=== PATIENT | female | born 1985 | race Caucasian/White ===

== ENCOUNTER 2018-04-29 19:09 | Outpatient (CLI) | payer OTHER ==
[2018-04-29 19:36] VITALS: BP 126/72
[2018-04-29] MEDS ORDERED: NITRATEST PAPER MC ONE (21:00)
== END 2018-04-29 20:56 | disposition home or self-care (01) ==
LOC: TRG 19:09
PROVIDERS: ATTEND Obstetrics & Gynecology
DX: O62.9 Abnormality of forces of labor, unspecified (principal); Z3A.40 40 weeks gestation of pregnancy
CPT/HCPCS: 59025

== ENCOUNTER 2018-05-01 20:45 | Inpatient (IN) | payer OTHER ==
--- NOTE | 2018-05-01 21:45 | History and Physical Report ---
History of Present Illness Date of examination: 05/01/18 Date of admission: 05/01/18 20:45 Chief complaint: 32 year old presents to L&D for induction of labor. History of present illness: 32 year old presents to L&D for induction of labor. LMP 07/18/17. EDC 04/24/18. EGA 41 weeks. Patient received care at [facility] clinic. Patient reports slightly decreased movement for past 2 days. She denies leaking of fluid or vaginal bleeding. Patient has a history of insulin resistance but had normal gestational diabetes screen. She has a history of elevated triglycerides and took Gemfibrozil prior to finding out she was . Patient had UTI during which was treated with Macrobid, and she had yeast infection which was treated with Terazol vaginal cream. She also has had anemia during . labs are as follows: O+, antibody screen negative, rubella immune, HIV negative, hepatitis B surface antigen negative, RPR nonreactive, chlamydia negative, gonorrhea negative, Quad screen negative, 1 hour sugar test 71, GBS negative. Past History Past Medical History: other (insulin resistance, elevated triglycerides) Past Surgical History: no surgical history [employer] History: abnormal PAP smear. denies: chlamydia, gonorrhea, hepatitis B, herpes, HIV, syphilis Family/Genetic History: none Social history: , lives with family, full code. denies: smoking, alcohol abuse, prescription drug abuse, IV drug use - Obstetrical History Expected Date of Delivery: 04/24/18 Actual Gestation: 41 Week(s) 0 Day(s) : 3 Para: 2 Hx # Term Pregnancies: 2 Number of Pregnancies: 1 Spontaneous Abortions: 0 Induced : 0 Number of Living Children: 2 Medications and Allergies Allergies Allergy/AdvReac Type Severity Reaction Status Date / Time egg Allergy Vomiting Verified 03/29/15 21:39 Home Medications Medication Instructions Recorded Confirmed Last Taken Type Albuterol Sulfate [Ventolin HFA] 2 puff IH Q4H PRN 04/29/18 04/29/18 04/29/18 History n Amoxicillin CAP 500 mg PO BID 04/29/18 04/29/18 04/29/18 10:00 History Review of Systems All systems: negative (one week past her due date) - Physical Exam Cardiovascular: Regular rate, Normal S1, Normal S2 Lungs: Positive: Clear to auscultation Abdomen: Positive: normal appearance, soft. Negative: distention, tenderness, guarding, rigidity Genitourinary (Female): Positive: normal external genitalia, perineal/vulvar lesions (no lesions noted on careful exam with bright light upon admission) Uterus: Positive: enlarged. Negative: tender, absent Adnexa: both: normal Anus/Rectum: Positive: normal perianal skin Extremities: Positive: normal. Negative: tenderness, edema - Obstetrical FHR: category 1 Uterine Contraction Monitor Mode: External Cervical Dilatation: 3 Cervical Effacement Percentage: 80 station: -3 to -4 Uterine Contraction Pattern: Irregular Uterine Contraction Intensity: Mild Results All other labs normal. Assessment and Plan A: at 41 weeks gestation. Group B strep negative. P: Admit. Pitocin induction of labor. Discussed with pt. risks and benefits of Pitocin induction of labor. Patient consented to Pitocin induction of labor.
[2018-05-01] MEDS ORDERED: SUBLIMAZE IV PRN (22:02)
[2018-05-01] MEDS ORDERED: ePHEDrine SULFATE IV PRN (22:02)
[2018-05-01] MEDS ORDERED: BRETHINE SUB-Q PRN (22:02)
[2018-05-01] MEDS ORDERED: XYLOCAINE 2% INFILTRATI ONE (22:02)
[2018-05-01] MEDS ORDERED: BRETHINE IVP PRN (22:02)
[2018-05-01] MEDS ORDERED: PITOCin/NS 30 UNIT/500ML 30 UNITS/500 ML BAG IV SCH (23:00)
[2018-05-01] MEDS ORDERED: PITOCin/NS 20 UNIT/1000ML DRIP 20 UNITS/1,000 ML BAG IV SCH (23:00)
[2018-05-01] MEDS: LACTATED RINGERS 1,000 ML IV SCH (23:48)
[2018-05-02 00:16] LABS: Hematocrit 35.5 % (30.3-42.9); Mean Corpuscular HGB Conc 34 % (30-34); Mean Corpuscular Hemoglobin 31 pg (28-32); Mean Corpuscular Volume 90 fl (79-97); Platelet Count 173 K/mm3 (140-440); Red Blood Count 3.93 M/mm3 (3.65-5.03); Red Cell Distribution Width 13.7 % (13.2-15.2)
--- NOTE | 2018-05-02 03:30 | Event Note ---
Date: 05/02/18 SVE 2.
[2018-05-02] MEDS ORDERED: ePHEDrine SULFATE IV PRN (03:42)
[2018-05-02] MEDS ORDERED: NARCAN 2 MG/2 ML IV PRN (03:42)
--- NOTE | 2018-05-02 03:42 | Anesthesia Consultation ---
Anesthesia Consult and Med Hx Date of service: 05/02/18 - Airway Anesthetic Teeth Evaluation: Good ROM Head & Neck: Adequate Mental/Hyoid Distance: Adequate Mallampati Class: Class II Intubation Access Assessment: Good - Pulmonary Exam CTA: Yes - Cardiac Exam Cardiac Exam: No Murmur - Pre-Operative Health Status ASA Pre-Surgery Classification: ASA2 Proposed Anesthetic Plan: Epidural - Pulmonary Hx Asthma: No COPD: No Hx Pneumonia: No - Cardiovascular System Hx Hypertension: No - Central Nervous System Hx Seizures: No Hx Psychiatric Problems: No - Endocrine Hx Renal Disease: No Hx End Stage Renal Disease: No Hx Hypothyroidism: No Hx Hyperthyroidism: No - Hematic Hx Anemia: No Hx Sickle Cell Disease: No - Other Systems Hx Alcohol Use: No
[2018-05-02] MEDS ORDERED: fentaNYL-BUPIV 2 MCG/ML-0.125% 200 MCG/100 ML BAG EPIDURAL SCH ×2 (04:00→13:00)
[2018-05-02] MEDS: LACTATED RINGERS 1,000 ML IV SCH (04:05)
[2018-05-02] MEDS ORDERED: MARCAINE 0.5% 30 ML INFILTRATI ONE (07:25)
[2018-05-02] MEDS: ROBITUSSIN AC PO PRN ×2 (08:00→13:34)
--- NOTE | 2018-05-02 08:32 | Event Note ---
Date: 05/02/18 Cervix 5/90/-1; slow cervical change. Pt. has been receiving Pitocin for induction of labor. AROM at 07:20 to enable insertion of IUPC and to augment labor. Moderate amount of clear fluid obtained. IUPC inserted without difficulty. Contractions adequate. Uterus palpates soft between contractions. Patient has not had good relief from epidural. Anesthesia consulted and they are now re-doing the epidural. Consulted Dr. Iverson at 08:12 re: patient's status, slow cervical change, and FHR tracing. Dr. Iverson states she is on her way in to evaluate the pt. Pitocin turned off just before second epidural and has now been restarted. FHR baseline 120 with moderate variability and accelerations. Maternal VSS. Patient is much more comfortable now.
--- NOTE | 2018-05-02 10:04 | Event Note ---
Date: 05/02/18 SVE 9/100/0. Patient comfortable. Category 1 heart rate tracing. Contractions every 3 minutes; uterus palpates soft between contractions. Pitocin at 4 milliunits per minute. Maternal VSS.
--- NOTE | 2018-05-02 11:59 | Procedure Note ---
OB Delivery Note - Delivery Date of Delivery: 05/02/18 Surgeon: IVELISSE DAVIS Estimated blood loss: other (350 cc) - Vaginal Delivery presentation: vertex Delivery position: OA Intrapartum events: other(please specify) (tight nuchal cord, clamped and cut on perineum) Delivery induction: AROM Delivery monitor: external FHT, external uterine, internal uterine Route of delivery: Delivery placenta: spontaneous Delivery cord: nuchal cord, 3 umbilical vessels Episiotomy: none Delivery laceration: none Anesthesia: epidural Delivery comments: of liveborn female infant weighing 7 lb. 1 oz. over intact perineum with apgars of 8 and 8. Tight nuchal cord, clamped and cut on perineum. Snug shoulders. Baby taken to radiant warmer immediately after and dried, stimulated, and bulb suctioned. Spontaneous cry and respirations. Baby returned promptly to maternal chest for skin to skin. Cord blood obtained. Spontaneous delivery of intact placenta and membranes by nixon mechanism. EBL 350 cc. Pitocin to IV fluids after delivery of placenta. Fundus firm and midline. No lacerations noted. Vaginal sweep negative. Sponge count correct. Mother and baby stable in birthing room. Baby moving all extremities well.
[2018-05-02] MEDS ORDERED: SODIUM CHLORIDE FLUSH SYRINGE 10 ML IV NR (12:00)
[2018-05-02] MEDS ORDERED: TUCKS PAD TP PRN (12:00)
[2018-05-02] MEDS ORDERED: TYLENOL PO PRN (12:00)
[2018-05-02] MEDS ORDERED: LANSINOH TP PRN (12:00)
[2018-05-02] MEDS: MOTRIN PO SCH ×3 (14:53→23:55)
[2018-05-03] MEDS: MOTRIN PO SCH ×3 (06:02→18:24)
[2018-05-03 07:44] LABS: Hematocrit 32.2 % (30.3-42.9)
[2018-05-03] MEDS ORDERED: BOOSTRIX IM ONE (12:00)
--- NOTE | 2018-05-03 13:58 | Progress Note ---
Assessment and Plan A: day 1. Normal course. Afterbirth cramping. Cough of 1 month duration (pt. states she was diagnosed with bronchitis at the office and was taking Amoxicillin prior to admission). P: Anticipate discharge tomorrow. Continue with cough medication every 4 hours as needed. Will resume pt.'s Amoxicillin. Subjective - Subjective Date of service: 05/03/18 Principal diagnosis: day 1 S/P Interval history: day 1. Doing well. Pt. is voiding without difficulty. She is ambulating well. She reports small amount of lochia. She is tolerating a regular diet without nausea or vomiting. Pt. reports afterbirth cramping. Pt. denies headache, chest pain, shortness of breath, cough, leg pain, heavy vaginal bleeding, or any other problems. Pt. states she was taking Amoxicillin prior to admission for bronchitis and still has the cough. Will resume this medication and also will resume pt.'s cough medication. Patient reports: appetite normal, voiding normally, pain well controlled, flatus , ambulating normally : doing well Objective - Vital Signs Latest vital signs: Vital Signs Temp Pulse Resp BP BP Pulse Ox 05/03/18 11:42 18 05/03/18 11:17 104/62 05/03/18 11:13 97.5 F L 66 18 104/48 97 05/03/18 07:30 98.4 F 59 L 18 110/48 05/03/18 06:02 18 05/03/18 00:42 98.7 F 71 18 107/52 97 05/02/18 23:55 18 05/02/18 22:58 18 05/02/18 21:58 19 05/02/18 21:38 98.6 F 76 18 114/63 99 05/02/18 20:16 98.6 F 18 114/63 05/02/18 15:30 98.1 F 69 18 113/60 96 05/02/18 14:53 20 Intake and Output 05/02/18 05/03/18 05/03/18 23:59 07:59 15:59 Intake Total 400 350 Balance 400 350 Intake: Oral 400 350 Other: Total, Intake Amount 400 350 # Voids Void 2 1 # Bowel Movements 0 - Exam Cardiovascular: Present: Regular rate, Normal S1, Normal S2 Lungs: Present: Clear to auscultation Abdomen: Present: soft. Absent: distention, tenderness, guarding, rigidity Uterus: Present: normal, firm, fundal height below umbilicus. Absent: bogginess , tenderness Extremities: Present: normal. Absent: tenderness, edema
[2018-05-03] MEDS: NORCO 5/325 PO PRN (16:44)
[2018-05-03] MEDS: ROBITUSSIN PO PRN (16:45)
[2018-05-03] MEDS: TRIMOX PO SCH (23:03)
[2018-05-04] MEDS: ROBITUSSIN PO PRN (03:07)
[2018-05-04] MEDS: NORCO 5/325 PO PRN (03:07)
[2018-05-04] MEDS ORDERED: PROAIR IH PRN (03:37)
[2018-05-04] MEDS ORDERED: PROVENTIL IH PRN (03:48)
--- NOTE | 2018-05-04 04:52 | XRay Report ---
FINAL REPORT EXAM: XR CHEST ROUTINE 2V HISTORY: persistent cough TECHNIQUE: PA and lateral views of the chest were submitted. FINDINGS: The heart size and vascularity appear normal. The lungs are clear. Pleural fluid is not seen. The skeletal structures are well-maintained. IMPRESSION: Within normal limits.
[2018-05-04] MEDS: TRIMOX PO SCH ×2 (05:28→14:00)
[2018-05-04] MEDS: MOTRIN PO SCH ×3 (05:28→17:50)
--- NOTE | 2018-05-04 09:30 | Progress Note ---
Assessment and Plan - Patient Problems (1) Status post normal vaginal delivery Current Visit: Yes Status: Acute Plan to address problem: PPD 2 Continue routine PP orders Anticipate d/c later today, if cleared by Hospitalist (2) Cough, persistent Current Visit: Yes Status: Acute Plan to address problem: H/O bronchitis - afebrile, normal x-ray Continue Amoxicillin, Albuterol prn, and Guaifenesin prn Hospitalist consult ordered Subjective - Subjective Date of service: 05/04/18 Principal diagnosis: s/p , PPD 2 Interval history: Pateint had a on 05/02/18 of a viable term female. She was on Amoxicillin for bronchitis prior to onset of labor. Patient is afebrile but coughing has persisted despite breathing treatment with Albuterol prn, Guaifenesin 200mg PO q4h prn & Amoxicillin 500mg PO q8h. An x-ray done was unremarkable. Hospitalist consult was ordered and still pending. Patient reports: appetite normal, voiding normally, pain well controlled, ambulating normally, other (coughing not getting better. H/O bronchitis) [place]: doing well, nursing well Objective - Vital Signs Latest vital signs: Vital Signs Temp Pulse Pulse Resp Resp BP BP 05/04/18 08:36 98.3 F 75 20 112/56 05/04/18 06:21 18 05/04/18 05:28 18 05/04/18 05:06 66 18 05/04/18 04:07 18 05/04/18 03:24 18 05/04/18 03:07 18 05/04/18 00:50 98.2 F 76 16 101/54 05/03/18 16:44 18 05/03/18 15:25 98.4 F 75 18 115/66 05/03/18 14:47 97.5 F L 78 18 05/03/18 11:42 18 05/03/18 11:17 104/62 05/03/18 11:13 97.5 F L 66 18 104/48 Pulse Ox 05/04/18 08:36 05/04/18 06:21 05/04/18 05:28 05/04/18 05:06 05/04/18 04:07 05/04/18 03:24 98 05/04/18 03:07 05/04/18 00:50 98 05/03/18 16:44 05/03/18 15:25 98 05/03/18 14:47 97 05/03/18 11:42 05/03/18 11:17 05/03/18 11:13 97 Intake and Output 05/03/18 05/04/18 05/04/18 23:59 07:59 15:59 Intake Total 960 320 Balance 960 320 Intake: Oral 600 320 Intake, Free Water 360 Other: Total, Intake Amount 600 320 # Voids Void 2 1 # Bowel Movements 0 - Exam Cardiovascular: Present: Regular rate Lungs: Present: Clear to auscultation, Normal air movement Abdomen: Present: normal appearance, soft Uterus: Present: normal, firm, fundal height below umbilicus Extremities: Present: normal
--- NOTE | 2018-05-04 17:06 | History and Physical Report ---
History of Present Illness Date of admission: 05/01/18 20:45 Chief complaint: Cough, shortness of breath History of present illness: 32 YO Female with No PMH. Consult placed by Dr. Iverson for cough and shortness of breath. Pt denies fever, chills, CP, Shortness of Breath, NVD, Unilateral leg swelling, calf pain, productive cough, or recent ill contacts. Pt seen and evaluated. Pt denies symptoms at time of exam. Pt ambulating independently, and not in distress. No reported nursing events. No record of hypoxemia in chart. Pt acknowledges cough overnight. Past History Past Medical History: No medical history Past Surgical History: No surgical history, Other (reviewed) Social history: , lives with family, full code. denies: smoking, alcohol abuse, prescription drug abuse, IV drug use Medications and Allergies Allergies Allergy/AdvReac Type Severity Reaction Status Date / Time egg Allergy Vomiting Verified 03/29/15 21:39 Home Medications Medication Instructions Recorded Confirmed Last Taken Type Amoxicillin CAP 500 mg PO BID 04/29/18 05/04/18 04/29/18 10:00 History Albuterol Sulfate [Ventolin HFA] 2 puff IH Q4H PRN #120 hfa.aer.ad 05/04/18 Unknown Rx Amoxicillin [Trimox CAP] 500 mg PO Q8HR #21 capsule 05/04/18 Unknown Rx guaiFENesin [Robitussin] 10 mg PO Q4H PRN #200 oral.liqd 05/04/18 Unknown Rx Active Meds: Active Medications Acetaminophen/Hydrocodone Bitart (Benicia 5/325) 1 each PO Q8H PRN PRN Reason: Pain, Moderate (4-6) Last Admin: 05/04/18 03:07 Dose: 1 each Albuterol (Proventil) 2.5 mg IH Q4HRT PRN PRN Reason: Shortness Of Breath Last Admin: 05/04/18 05:01 Dose: 2.5 mg Amoxicillin (Trimox) 500 mg PO Q8HR JESSICA Last Admin: 05/04/18 14:00 Dose: 500 mg Guaifenesin (Robitussin) 200 mg PO Q4H PRN PRN Reason: Cough Last Admin: 05/04/18 03:07 Dose: 200 mg Fentanyl/Bupivacaine/Sodium Chlor (Fentanyl-Bupiv 2 Mcg/Ml-0.125%) 200 mcg in 100 mls @ 12 mls/hr EPIDURAL TITR JESSICA; Protocol Ibuprofen (Motrin) 600 mg PO Q6H JESSICA Last Admin: 05/04/18 12:10 Dose: 600 mg Multi-Ingredient Ointment (Lansinoh) 1 applic TP PRN PRN PRN Reason: Sore Nipples Witch Diamond/Glycerin (Tucks Pad) 1 each TP PRN PRN PRN Reason: Hemorrhoid/cleansing/soothing Review of Systems Constitutional: no weight loss, no weight gain, no fever, no chills Ears, nose, mouth and throat: no ear pain, no ear discharge, no tinnitis, no decreased hearing, no nose pain Breasts: no change in shape, no swelling, no mass Cardiovascular: no chest pain, no orthopnea, no palpitations, no rapid/ irregular heart beat, no edema, no syncope, no lightheadedness, no shortness of breath, no dyspnea on exertion, no paroxysmal nocturnal dyspnea, no claudication , no phlebitis, no high blood pressure, no leg edema, no decreased exercise tolerance Respiratory: no cough with sputum, no excessive sputum, no hemoptysis, no shortness of breath, no dyspnea on exertion, no congestion, no wheezing, no pleurisy, no pain, no sleep apnea, no respiratory infections Gastrointestinal: no nausea, no vomiting, no diarrhea, no constipation, no change in bowel habits Genitourinary Female: no pelvic pain, no flank pain, no menorrhagia Rectal: no pain, no incontinence, no bleeding Musculoskeletal: no neck stiffness, no neck pain, no shooting arm pain, no arm numbness/tingling, no shooting leg pain, no leg numbness/tingling Integumentary: no deferred, no rash, no pruritis Neurological: no head injury, no transient paralysis, no paralysis, no parathesias, no numbness Psychiatric: no anxiety, no memory loss, no change in sleep habits, no sleep disturbances, no insomnia Endocrine: no heat intolerance, no polyphagia, no excessive thirst, no polydipsia, no polyuria, no nocturia Hematologic/Lymphatic: no easy bruising, no easy bleeding, no lymphadenopathy, no lymphedema Allergic/Immunologic: no urticaria, no allergic rhinitis, no persistent infections, no anaphylaxis Exam - Constitutional Vitals: Temp Pulse Resp BP Pulse Ox 98.3 F 75 20 112/56 98 05/04/18 08:36 05/04/18 08:36 05/04/18 08:36 05/04/18 08:36 05/04/18 03:24 General appearance: Present: no acute distress, well-nourished - EENT Eyes: Present: PERRL ENT: hearing intact, clear oral mucosa - Neck Neck: Present: supple, normal ROM - Respiratory Respiratory effort: normal Respiratory: bilateral: CTA - Cardiovascular Heart Sounds: Present: S1 & S2. Absent: rub, click - Extremities Extremities: pulses symmetrical, No edema Peripheral Pulses: within normal limits - Abdominal General gastrointestinal: Present: soft, non-tender, non-distended, normal bowel sounds Female genitourinary: Present: normal - Integumentary Integumentary: Present: clear, warm, dry - Musculoskeletal Musculoskeletal: gait normal, strength equal bilaterally - Psychiatric Psychiatric: appropriate mood/affect, intact judgment & insight - Neurologic Neurologic: CNII-XII intact, moves all extremities Results - Labs CBC & Chem 7: 05/03/18 07:28 Assessment and Plan - Patient Problems (1) Cough Status: Acute Plan to address problem: Chest X ray, early ambulation, cough suppressant, supportive care,.
[2018-05-04 17:57] VITALS: BP 101/51
--- NOTE | 2018-05-04 19:29 | Discharge Summary ---
Providers - Providers Date of Admission: 05/01/18 20:45 Date of discharge: 05/04/18 Attending physician: CALVIN KNIGHT MD 05/04/18 03:38 Consult to Physician [CONS] Routine Comment: Consulting Provider: EDWINA DUFF Physician Instructions: Reason For Exam: bronchitis Primary care physician: CALVIN KNIGHT MD Hospitalization Reason for admission: induction of labor, IUP at term Delivery: Episiotomy: none Laceration: none Other procedures: none complications: other (coughing) Discharge diagnosis: IUP at term delivered baby: female Hospital course: complicated by persistent coughing Condition at discharge: Good Disposition: DC-01 TO HOME OR SELFCARE - Discharge Diagnoses (1) Status post normal vaginal delivery Status: Acute (2) Cough, persistent Status: Acute Comment: Was evaluated by Hospitalist and cleared to be discharged home Plan - Discharge Medications Prescriptions: Albuterol Sulfate [Ventolin HFA] 2 puff IH Q4H PRN #120 hfa.aer.ad PRN Reason: Shortness Of Breath Amoxicillin [Trimox CAP] 500 mg PO Q8HR #21 capsule guaiFENesin [Robitussin] 10 mg PO Q4H PRN #200 oral.liqd PRN Reason: Cough - Provider Discharge Summary Activity: routine, no sex for 6 weeks, no heavy lifting 4 weeks Diet: routine Instructions: routine Additional instructions: [] Smoking cessation referral if applicable(refer to patient education folder for contact #) [] Refer to [facility]'s [facility] Booklet Call your doctor immediately for: * Fever > 100.5 * Heavy vaginal bleeding ( >1 pad per hour) * Severe persistent headache * Shortness of breath * Reddened, hot, painful area to leg or breast * Drainage or odor from incision. * Keep incision clean and dry at all times and follow doctor's instructions regarding bathing/showering - Follow up plan Follow up: CALVIN KNIGHT MD [Primary Care Provider] - 6 Weeks (Follow up at [facility] in 6 weeks for exam) Forms: [facility] Discharge Summary
== END 2018-05-04 19:00 | disposition home or self-care (01) | DRG 775 ==
LOC: LD 20:45 → OB 05-02 14:13
PROVIDERS: ADMIT Obstetrics & Gynecology; ATTEND Obstetrics & Gynecology
PROC: 10E0XZZ Delivery of Products of Conception, External Approach (ICD-10-PCS; principal; 2018-05-02)
PROC: 3E0R3BZ Introduction of Anesthetic Agent into Spinal Canal, Percutaneous Approach (ICD-10-PCS; 2018-05-02)
PROC: 00HU33Z Insertion of Infusion Device into Spinal Canal, Percutaneous Approach (ICD-10-PCS; 2018-05-02)
DX: O69.81X0 Labor and delivery complicated by cord around neck, without compression, not applicable or unspecified (principal); Z3A.41 41 weeks gestation of pregnancy; Z37.0 Single live birth; Z91.018 Allergy to other foods
CPT/HCPCS: 36415; 71046; 85014; 85018; 85027; 86592; 86850; 86900; 86901; 90471; 90715; 94640; 99211; G0463; J2590; J7120